=== PATIENT | female | born 1955 | race Caucasian/White ===

== ENCOUNTER → 2017-07-19 | Outpatient (CLI) | payer OTHER ==
--- NOTE | 2017-07-19 15:30 | MAMMOGRAPHY REPORT ---
BILATERAL DIGITAL SCREENING MAMMOGRAM TOMOSYNTHESIS WITH CAD: 07/19/2017 CLINICAL HISTORY: Routine screening. Patient has no complaints. TECHNIQUE: Breast tomosynthesis in addition to standard 2D mammography was performed. Current study was also evaluated with a Computer Aided Detection (CAD) system. COMPARISON: Comparison is made to exams dated: 07/13/2016 mammogram, 07/02/2014 mammogram, 07/08/2015 m ammogram, 06/26/2013 mammogram, 06/20/2012 mammogram - [facility], and 06/03/2009. BREAST COMPOSITION: There are scattered areas of fibroglandular density in both breasts. FINDINGS: There is a stable benign-appearing circumscribed mass in the medial right breast, and is s table metallic biopsy marker clip in the left breast. No new suspicious mass, architectural distortio n or cluster of microcalcifications is seen. IMPRESSION: ACR BI-RADS CATEGORY 2: BENIGN There is no mammographic evidence of malignancy. A 1 year screening mammogram is recommended. The pa tient will receive written notification of the results. Approximately 10% of breast cancers are not detected with mammography. A negative mammographic report should not delay biopsy if a clinically suggestive mass is present. Ambar Vernon M.D. ay/:07/19/2017 09:30:44 Marketing Project Specialist: Luciana CABELLO(Sánchez)(M), [facility] letter sent: Normal 1/2 BI-RADS Code: ACR BI-RADS Category 2: Benign
== END | disposition home or self-care (01) ==
LOC: C.MAMM 09:04
PROVIDERS: ATTEND Physician Assistant Medical
DX: Z12.31 Encounter for screening mammogram for malignant neoplasm of breast (principal)

== ENCOUNTER → 2018-01-05 | Outpatient (CLI) | payer OTHER ==
[2018-01-05 13:52] LABS: BASO % 0.3 %; BASO ABS # 0.01 K/uL (0-0.2); EOS % 1.4 %; EOS ABS # 0.05 K/uL (0-0.5); HEMATOCRIT 40.5 % (37-47); HEMOGLOBIN 14.1 g/dL (12.0-16.0); IG# 0.01 K/uL (0.00-0.02); LYMPH % 32.7 %; LYMPH ABS # 1.15 K/uL (1.2-3.4); MEAN CORPUSCULAR HEMOGLOBIN 30.7 pg (25-34); MEAN CORPUSCULAR HGB CONC 34.8 g/dl (32-36); MEAN PLATELET VOLUME 10.1 fL (7.4-10.4); MONO % 9.7 %; MONO ABS # 0.34 K/uL (0.11-0.59); NEUT % 55.6 %; NEUT ABS # 1.96 K/uL (1.4-6.5); PLATELET COUNT 225 K/uL (130-400); RED CELL DISTRIBUTION WIDTH CV 12.4 % (11.5-14.5); RED CELL DISTRIBUTION WIDTH SD 39.5 fL (36.4-46.3); WHITE BLOOD COUNT 3.52 K/uL (4.8-10.8)
[2018-01-05 14:04] LABS: ALT/SGPT 17 U/L (12-78); BLOOD UREA NITROGEN 14 mg/dl (7-18); CARBON DIOXIDE 27 mmol/L (21-32); CHOLESTEROL 185 mg/dl (0-200); CREATININE 0.74 mg/dl (0.60-1.20); GLUCOSE 81 mg/dl (70-99); POTASSIUM 3.8 mmol/L (3.5-5.1); SODIUM 139 mmol/L (136-145)
[2018-01-05 14:15] LABS: ALKALINE PHOSPHATASE 75 U/L (45-117); AST/SGOT 13 U/L (15-37); LDL CHOLESTEROL CALCULATED 97 mg/dl
== END | disposition home or self-care (01) ==
LOC: C.LABBC 09:54
PROVIDERS: ATTEND Physician Assistant Medical
DX: Z00.00 Encounter for general adult medical examination without abnormal findings (principal); R39.9 Unspecified symptoms and signs involving the genitourinary system; D72.819 Decreased white blood cell count, unspecified; Z11.59 Encounter for screening for other viral diseases

== ENCOUNTER → 2018-03-15 | Day surgery (SDC) | payer OTHER ==
[2018-02-27 11:28] VITALS: Ht 171.5 cm; Wt 60.5 kg
[~2018-03-15] VITALS: Ht 171.5 cm; Wt 60.5 kg
[~2018-03-15] MED LIST: CALC600T9 PO; DEXAMETHASONE SOD INJ 4 MG/ML VIAL ONE; LIDOCAINE HCL 1% MPF 5 ML VIAL ONE; MULT-506 PO
--- NOTE | 2018-03-15 07:26 | History & Physical Bridge - [place] ---
H&P Re-Evaluation Bridge Note: I have examined the patient, reviewed the History & Physical and in the interval since the performance of the History & Physical I have noted the following changes of clinical significance: No changes noted
--- NOTE | 2018-03-15 07:48 | Discharge Instructions ---
Discharge Instructions Date of Service March 15, 2018. Admission Reason for Admission: Spinal Stenosis Discharge Discharge Diagnosis / Problem: same Discharge Goals Goal(s): Improve function Activity Recommendations Activity Limitations: resume your previous activity . Current Hospital Diet Patient's current hospital diet: Discharge Diet Recommended Diet: Regular Diet Procedures Procedures Performed: L3-4, L4-5 Epidural Steroid Injection Pending Studies Studies pending at discharge: no Laboratory Results Lipid Panel Test 01/05/18 09:59 Range/Units Triglycerides Level 62 0-150 mg/dl Cholesterol Level 185 0-200 mg/dl HDL Cholesterol 76 mg/dl Cholesterol/HDL Ratio 2.4 LDL Cholesterol, Calculated 97 mg/dl Medical Emergencies . Who to Call and When: Medical Emergencies: If at any time you feel your situation is an emergency, please call 911 immediately. . Non-Emergent Contact Non-Emergency issues call your: Primary Care Provider . "Provider Documentation" section prepared by Kel Childers. .
--- NOTE | 2018-03-15 07:49 | [facility] Post Operative Brief Note ---
Immediate Operative Summary Operative Date March 15, 2018. Pre-Operative Diagnosis SPINAL STENOSIS Post-Operative Diagnosis SAME Procedure(s) Performed L3-4, L4-5 Epidural Steroid Injection Surgeon DR. Alanis MEADE Radiator Tester Surgeon(s) NONE Estimated Blood Loss NONE Findings Consistent with Post-Op Diagnosis Specimens NONE Anesthesia Type Local
[2018-03-15 08:10] VITALS: BP 118/72; PULSE 64; O2SAT 100
--- NOTE | 2018-03-15 08:47 | OPERATIVE REPORT ---
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 POSTOPERATIVE DIAGNOSES: Stenosis and spondylosis L3-4, L4-5 lumbar spine. PROCEDURE: Included an epidural steroid L3-4, L4-5 lumbar spine. DESCRIPTION OF PROCEDURE: The patient was taken to the minor procedure room and placed prone, prepped and draped sterile. The 22-gauge Tuohy needle advanced to the epidural space. The patient tolerated well. One mL of dexamethasone injected to each of these areas with Xylocaine anesthetic without incident. Returned to PACU stable. Discharged home. No complications. I attest to the content of the Intraoperative Record and any orders documented therein. Any exception s are noted below.
== END | disposition home or self-care (01) ==
LOC: X.SURG 06:27
PROVIDERS: ATTEND Orthopaedic Surgery Orthopaedic Surgery of the Spine
DX: M48.061 Spinal stenosis, lumbar region without neurogenic claudication (principal); M47.896 Other spondylosis, lumbar region; Z98.890 Other specified postprocedural states; Z98.818 Other dental procedure status; Z82.49 Family history of ischemic heart disease and other diseases of the circulatory system; Z82.3 Family history of stroke